=== PATIENT | male | born 1970 | race Caucasian/White ===

== ENCOUNTER 2023-04-27 08:17 | Day surgery (SDC) | payer OTHER ==
[2023-04-25 09:39] LABS: HEMATOCRIT 44.2 % (39.0-48.0); HEMOGLOBIN 15.5 g/dL (13-16.00); MEAN CELL VOLUME 87.3 fL (80.0-100.00); MEAN CORPUSCULAR HEMOGLOBIN 30.6 pg (27.00-32.0); PLATELET COUNT 279 K/uL (150-450); RED BLOOD COUNT 5.06 M/uL (4.00-6.00); RED CELL DISTRIBUTION WIDTH 13.1 % (11.5-14.5)
[2023-04-25 09:52] LABS: URINE APPEARANCE Clear; URINE BILIRRUBIN Negative (NEGATIVE); URINE BLOOD Negative; URINE COLOR Yellow; URINE GLUCOSE Negative (NEGATIVE); URINE LEUKOCYTE Negative; URINE NITRATE Negative; URINE PROTEIN Negative (NEGATIVE)
[2023-04-25 09:53] LABS: URINE EPITHELIAL CELLS 3.8 uL (0.0-38.8); URINE RBC 2.5 uL (0.0-20.8); URINE WBC 2.3 uL (0.0-23.2)
[2023-04-25 09:58] LABS: URINE BACTERIA 3.7 uL (0.0-1933)
[2023-04-25 10:04] LABS: INR 1.1; PARTIAL THROMBOPLASTIN TIME 27.4 SECONDS (22.0-34.0); PROTHROMBIN TIME 11.5 SECONDS (9.0-11.5)
[2023-04-25 10:05] LABS: CALCIUM 9.3 mg/dL (8.5-10.1); CREATININE SERUM 1.39 mg/dL (0.70-1.30); GFR 53.66; POTASSIUM 3.34 mEq/L (3.5-5.1)
[~2023-04-27 08:17] MED LIST: CHLORTALIDONE PO; TRILIPIX45 MG
== END 2023-04-27 16:13 | disposition home or self-care (01) ==
LOC: CIR LITO 08:17 → CIR.AMB 08:37 → CIR LITO 09:15
PROVIDERS: ATTEND Urology
DX: N20.0 Calculus of kidney (principal); I10 Essential (primary) hypertension; Z20.822 Contact with and (suspected) exposure to COVID-19